=== PATIENT | male | born 1990 | race African-American/Black ===

== ENCOUNTER 2017-04-17 16:57 | Emergency (ER) | payer OTHER ==
[~2017-04-17] VITALS: Ht 167.6 cm; Wt 63.6 kg
[~2017-04-17 16:57] MED LIST: DOXYCYCLINE 10100 MG PO; NORCO 325 MG-51 TAB PO; UNABLE TO ASSESS; [UNRECOGNIZED DRUG - REMARK]
[2017-04-17 16:59] VITALS: BP 108/75; PULSE 106; TEMP 98.5
== END 2017-04-17 18:10 | disposition home or self-care (01) ==
LOC: COL.ER 16:57
DX: M25.462 Effusion, left knee (principal); F17.210 Nicotine dependence, cigarettes, uncomplicated; F12.99 Cannabis use, unspecified with unspecified cannabis-induced disorder; Z98.890 Other specified postprocedural states

== ENCOUNTER 2017-07-08 18:38 | Emergency (ER) | payer SELFPAY ==
[~2017-07-08] VITALS: Ht 167.6 cm; Wt 65.9 kg
[2017-07-08 18:41] VITALS: TEMP 98.6
[2017-07-08 19:20] LABS: BASO # 0.1 (0.0-0.2); BASO % 1.3 % (0.0-2.0); EOS # 0.1 (0.0-0.7); EOS % 2.3 % (0-4.0); GRAN % 50.2 % (42.2-75.2); HEMATOCRIT 44.7 % (42.0-52.0); HEMOGLOBIN 15.4 g/dl (13.5-18.0); LYMPH # 2.3 (1.2-3.4); MEAN CELL VOLUME 95 fl (80.0-100.0); MEAN CORPUSCULAR HEMOGLOBIN 33 pg (27.0-31.0); MEAN CORPUSCULAR HGB CONC 35 g/dl (33.0-37.0); MEAN PLATELET VOLUME 8.7 fl (7.4-10.4); MONO # 0.4 (0.1-0.6); PLATELET COUNT 355 K/mm3 (130-400); RED BLOOD COUNT 4.73 M/mm3 (4.20-5.60)
[2017-07-08 19:24] LABS: PROTHROMBIN TIME 11.1 SECONDS (9.7-12.8)
[2017-07-08 19:27] LABS: PARTIAL THROMBOPLASTIN TIME 31.1 SECONDS (26.0-37.0)
[2017-07-08 19:35] LABS: ADJUSTED CALCIUM 9.2 mg/dL (8.4-10.2); ALANINE AMINOTRANSFERASE 22 U/L (21-72); ALBUMIN 4.8 gm/dL (3.5-5.0); ALKALINE PHOSPHATASE 83 U/L (50-136); ANION GAP 17 mmol/L (7-16); BILIRUBIN,TOTAL 0.4 mg/dL (0.0-1.0); BLOOD UREA NITROGEN 11 mg/dL (9-20); CALCIUM 9.8 mg/dL (8.4-10.2); CARBON DIOXIDE 22 mmol/L (22-30); CHLORIDE 106 mmol/L (98-107); CREATININE, serum 0.98 mg/dL (0.66-1.25); GLUCOSE 61 mg/dL (74-106); MAGNESIUM 1.9 mg/dL (1.6-2.3); PHOSPHOROUS 3.3 mg/dL (2.5-4.5); POTASSIUM 3.9 mmol/L (3.4-5.0); SODIUM 145 mmol/L (137-145)
[2017-07-08 19:40] LABS: ACETAMINOPHEN 91 ug/mL (10-30); SALICYLATE < 1.0 mg/dL
[2017-07-08 19:43] LABS: AMPHETAMINE URINE POSITIVE; BARBITURATES URINE NEGATIVE; BENZODIAZEPINES URINE NEGATIVE; BUPRENORPHINE URINE NEGATIVE; METHADONE URINE NEGATIVE; OPIATES URINE NEGATIVE; OXYCODONE URINE NEGATIVE; PHENCYCLIDINE URINE NEGATIVE; PROPOXYPHENE URINE NEGATIVE; THC CANNABINOIDS URINE POSITIVE
[2017-07-09 01:00] VITALS: BP 119/84; PULSE 61
== END 2017-07-09 01:01 | disposition home or self-care (01) ==
LOC: COL.ER 18:38
PROVIDERS: Emergency Medicine
DX: T39.1X2A Poisoning by 4-Aminophenol derivatives, intentional self-harm, initial encounter (principal); F32.9 Major depressive disorder, single episode, unspecified; F17.210 Nicotine dependence, cigarettes, uncomplicated
CPT/HCPCS: J7030

== ENCOUNTER 2018-08-21 06:36 | Emergency (ER) | payer SELFPAY ==
[~2018-08-21] VITALS: Ht 165.1 cm; Wt 61.4 kg
[2018-08-21 06:41] VITALS: TEMP 98.3
[2018-08-21 07:49] LABS: BASO # 0.1 (0.0-0.2); EOS # 0.1 (0.0-0.7); GRAN # 3.7 (1.4-6.5); HEMOGLOBIN 14.7 g/dl (13.5-18.0); LYMPH # 2.5 (1.2-3.4); LYMPH % 36.5 % (20.0-51.0); MEAN CELL VOLUME 98 fl (80.0-100.0); MEAN CORPUSCULAR HEMOGLOBIN 33 pg (27.0-31.0); MEAN CORPUSCULAR HGB CONC 33 g/dl (33.0-37.0); MEAN PLATELET VOLUME 9.1 fl (7.4-10.4); MONO # 0.5 (0.1-0.6); MONO % 7.4 % (1.7-9.3); PLATELET COUNT 259 K/mm3 (130-400); RED BLOOD COUNT 4.47 M/mm3 (4.20-5.60); REDCELL DISTRIBUTION WIDTH-CV 11.8 % (11.5-14.5)
[2018-08-21 07:56] LABS: ALANINE AMINOTRANSFERASE 52 U/L (21-72); ALBUMIN 4.5 gm/dL (3.5-5.0); ALCOHOL(ethanol),MEDICAL 258 mg/dL; ALKALINE PHOSPHATASE 68 U/L (50-136); ANION GAP 9 mmol/L (7-16); AST,SGOT 59 U/L (15-37); BILIRUBIN,TOTAL 0.3 mg/dL (0.0-1.0); BLOOD UREA NITROGEN 8 mg/dL (9-20); CALCIUM 8.8 mg/dL (8.4-10.2); CARBON DIOXIDE 29 mmol/L (22-30); CHLORIDE 111 mmol/L (98-107); CREATININE, serum 0.82 mg/dL (0.66-1.25); GLUCOSE 102 mg/dL (74-106); POTASSIUM 4.3 mmol/L (3.4-5.0); SODIUM 148 mmol/L (137-145); TOTAL PROTEIN 8.6 gm/dL (6.4-8.2)
[2018-08-21 07:58] LABS: COLLECTION METHOD CLEAN CATCH
[2018-08-21 07:58] LABS: ACETAMINOPHEN < 10 ug/mL (10-30); SALICYLATE < 1.0 mg/dL
[2018-08-21 08:03] LABS: MUCOUS Present /lpf; PH 6 (5-8); SQUAMOUS EPITHELIAL 0-2 /hpf; URINE APPEARANCE Clear; URINE BACTERIA None Seen /hpf; URINE BILIRUBIN Negative (NEGATIVE); URINE BLOOD Negative (NEGATIVE); URINE COLOR Yellow; URINE GLUCOSE Negative (NEGATIVE); URINE KETONE Negative (NEGATIVE); URINE LEUKOCYTE ESTERASE Negative (NEGATIVE); URINE NITRATE Negative (NEGATIVE); URINE PROTEIN(semi-quant) 1+ (NEGATIVE); URINE RBC None Seen /hpf; URINE UROBILINOGEN Negative (NEGATIVE)
[2018-08-21 08:11] LABS: TRICYCLIC ANTIDEPRESS URINE NEGATIVE
[2018-08-21 18:52] VITALS: BP 121/72; PULSE 68
== END 2018-08-21 18:53 | disposition home or self-care (01) ==
LOC: COL.ER 06:36
PROVIDERS: Emergency Medicine
DX: F10.129 Alcohol abuse with intoxication, unspecified (principal); R45.851 Suicidal ideations; S05.01XA Injury of conjunctiva and corneal abrasion without foreign body, right eye, initial encounter; Z23 Encounter for immunization; F17.210 Nicotine dependence, cigarettes, uncomplicated; Y04.0XXA Assault by unarmed brawl or fight, initial encounter; Y92.009 Unspecified place in unspecified non-institutional (private) residence as the place of occurrence of the external cause; Y90.8 Blood alcohol level of 240 mg/100 ml or more

== ENCOUNTER 2021-04-06 00:10 | Emergency (ER) | payer SELFPAY ==
[~2021-04-06] VITALS: Ht 165.1 cm; Wt 60.0 kg
[2021-04-06 00:29] LABS: COLLECTION METHOD CLEAN CATCH
[2021-04-06 00:45] LABS: PH 6 (5-8); SQUAMOUS EPITHELIAL None Seen /hpf; URINE APPEARANCE Clear; URINE BACTERIA None Seen /hpf; URINE BILIRUBIN Negative (NEGATIVE); URINE BLOOD Negative (NEGATIVE); URINE COLOR Straw; URINE GLUCOSE Negative (NEGATIVE); URINE KETONE Negative (NEGATIVE); URINE LEUKOCYTE ESTERASE Negative (NEGATIVE); URINE NITRATE Negative (NEGATIVE); URINE PROTEIN(semi-quant) Negative (NEGATIVE); URINE RBC None Seen /hpf; URINE UROBILINOGEN Negative (NEGATIVE)
[2021-04-06 00:50] LABS: TRICYCLIC ANTIDEPRESS URINE NEGATIVE
[2021-04-06 00:50] LABS: BASO # 0.1 (0.0-0.2); BASO % 1.2 % (0.0-2.0); EOS # 0.3 (0.0-0.7); EOS % 3.8 % (0-4.0); GRAN # 2.2 (1.4-6.5); GRAN % 34.1 % (42.2-75.2); HEMATOCRIT 41.7 % (42.0-52.0); HEMOGLOBIN 14.4 g/dl (13.5-18.0); LYMPH # 3.3 (1.2-3.4); LYMPH % 50.3 % (20.0-51.0); MEAN CELL VOLUME 94 fl (80.0-100.0); MEAN CORPUSCULAR HEMOGLOBIN 33 pg (27.0-31.0); MEAN CORPUSCULAR HGB CONC 35 g/dl (33.0-37.0); MEAN PLATELET VOLUME 8.8 fl (7.4-10.4); MONO # 0.7 (0.1-0.6); MONO % 10.4 % (1.7-9.3); PLATELET COUNT 284 K/mm3 (130-400); RED BLOOD COUNT 4.42 M/mm3 (4.20-5.60); REDCELL DISTRIBUTION WIDTH-CV 11.5 % (11.5-14.5)
[2021-04-06 01:02] LABS: ALANINE AMINOTRANSFERASE 35 U/L (4-49); ALBUMIN 4.3 gm/dL (3.5-5.0); ALKALINE PHOSPHATASE 64 U/L (50-136); ANION GAP 12 mmol/L (7-16); AST,SGOT 75 U/L (15-37); BILIRUBIN,TOTAL 0.1 mg/dL (0.0-1.0); BLOOD UREA NITROGEN 13 mg/dL (9-20); CALCIUM 8.8 mg/dL (8.4-10.2); CARBON DIOXIDE 23 mmol/L (22-30); CHLORIDE 113 mmol/L (98-107); CREATININE, serum 0.93 (0.66-1.25); GLUCOSE 96 mg/dL (74-106); POTASSIUM 4.3 mmol/L (3.4-5.0); SODIUM 148 mmol/L (137-145); TOTAL PROTEIN 8.3 gm/dL (6.4-8.2)
[2021-04-06 01:03] LABS: ACETAMINOPHEN < 10 ug/mL (10-30); SALICYLATE < 1.0 mg/dL
[2021-04-06 01:11] LABS: ALCOHOL(ethanol),MEDICAL 432 mg/dL
[2021-04-06 17:27] VITALS: BP 112/64; PULSE 74; TEMP 98.1
== END 2021-04-06 17:27 | disposition home or self-care (01) ==
LOC: COL.ER 00:10
PROVIDERS: Emergency Medicine
DX: T50.992A Poisoning by other drugs, medicaments and biological substances, intentional self-harm, initial encounter (principal); F10.129 Alcohol abuse with intoxication, unspecified; F12.10 Cannabis abuse, uncomplicated; F15.10 Other stimulant abuse, uncomplicated; F17.210 Nicotine dependence, cigarettes, uncomplicated; X83.8XXA Intentional self-harm by other specified means, initial encounter

== ENCOUNTER 2021-04-17 13:15 | Emergency (ER) | payer SELFPAY ==
[~2021-04-17] VITALS: Ht 165.1 cm; Wt 63.6 kg
[2021-04-17 13:33] VITALS: TEMP 98.6
[2021-04-17] MEDS ORDERED: FLEXERIL 1010 MG/TAB PO (15:36)
[2021-04-17] MEDS ORDERED: NORCO 325 MG-51 TAB PO (15:36)
[2021-04-17 15:45] VITALS: BP 115/72; PULSE 71
== END 2021-04-17 15:45 | disposition home or self-care (01) ==
LOC: COL.ER 13:15
DX: S39.012A Strain of muscle, fascia and tendon of lower back, initial encounter (principal); F17.210 Nicotine dependence, cigarettes, uncomplicated; X50.0XXA Overexertion from strenuous movement or load, initial encounter; Y92.59 Other trade areas as the place of occurrence of the external cause; Y99.0 Civilian activity done for income or pay
CPT/HCPCS: J1885; J2360

== ENCOUNTER 2021-04-23 04:37 | Emergency (ER) | payer SELFPAY ==
[~2021-04-23] VITALS: Ht 167.6 cm; Wt 65.9 kg
[~2021-04-23 04:37] MED LIST changes: +FLEXERIL 1010 MG/TAB PO
[2021-04-23 04:43] VITALS: TEMP 97.2
[2021-04-23] MEDS ORDERED: PERCOCET 325 MG1 TA2 PO (05:11)
[2021-04-23] MEDS ORDERED: FLEXERIL 1010 MG/TAB PO (05:11)
[2021-04-23] MEDS ORDERED: MOTRIN 800800 MG/TAB PO (05:11)
[2021-04-23 05:30] VITALS: BP 127/81; PULSE 87
== END 2021-04-23 05:30 | disposition home or self-care (01) ==
LOC: COL.ER 04:37
DX: S39.012A Strain of muscle, fascia and tendon of lower back, initial encounter (principal); Z87.891 Personal history of nicotine dependence; X50.0XXA Overexertion from strenuous movement or load, initial encounter; Y93.F2 Activity, caregiving, lifting
CPT/HCPCS: J1885; J2360

== ENCOUNTER 2021-05-02 13:45 | Emergency (ER) | payer SELFPAY ==
[~2021-05-02] VITALS: Ht 167.6 cm; Wt 63.6 kg
[~2021-05-02 13:45] MED LIST changes: +MOTRIN 800800 MG/TAB PO; +PERCOCET 325 MG1 TA2 PO
[2021-05-02 14:52] VITALS: BP 118/88; PULSE 92
== END 2021-05-02 14:52 | disposition home or self-care (01) ==
LOC: COL.ER 13:45
DX: G89.29 Other chronic pain (principal); M54.5 Low back pain; F17.210 Nicotine dependence, cigarettes, uncomplicated; Z79.891 Long term (current) use of opiate analgesic
CPT/HCPCS: J1885

== ENCOUNTER 2021-05-14 18:23 | Emergency (ER) | payer SELFPAY ==
[~2021-05-14] VITALS: Ht 165.1 cm; Wt 63.6 kg
[2021-05-14 18:35] VITALS: TEMP 98
[2021-05-14 21:50] VITALS: BP 110/71; PULSE 89
== END 2021-05-14 21:55 | disposition home or self-care (01) ==
LOC: COL.ER 18:23
DX: S61.401A Unspecified open wound of right hand, initial encounter (principal); F17.210 Nicotine dependence, cigarettes, uncomplicated; Z23 Encounter for immunization; W40.0XXA Explosion of blasting material, initial encounter; Y92.59 Other trade areas as the place of occurrence of the external cause; Y99.0 Civilian activity done for income or pay
CPT/HCPCS: J0690; J1170; J3010; J7030